=== PATIENT | female | born 2000 | race Caucasian/White ===

== ENCOUNTER 2023-06-04 01:13 | Emergency (ER) | payer SELFPAY | END 2023-06-04 03:20 | disposition left against medical advice (07) | LOC: JP.ED 01:13 | DX: O46.93 Antepartum hemorrhage, unspecified, third trimester (principal); O99.333 Smoking (tobacco) complicating pregnancy, third trimester; F17.210 Nicotine dependence, cigarettes, uncomplicated; Z3A.28 28 weeks gestation of pregnancy | CPT/HCPCS: 99283 ==